=== PATIENT | male | born 1965 | race Caucasian/White ===

== ENCOUNTER 2017-08-30 21:50 | Emergency (ER) | payer MEDICAID ==
[2017-08-30 22:47] VITALS: BP 126/80
[2017-08-30] MEDS ORDERED: Acetaminophen/oxyCODONE 325-5 MG Tab PO ONE (23:34)
--- NOTE | 2017-08-30 23:35 | EDM.PDOC ---
ED HPI GENERAL MEDICAL PROBLEM - General Chief Complaint: Lower Extremity Injury/Pain Stated Complaint: right knee was HURT Time Seen by Provider: 08/30/17 23:35 Source of Information: Reports: Patient, Family History Limitations: Reports: No Limitations - History of Present Illness INITIAL COMMENTS - FREE TEXT/NARRATIVE: pt was putting docks into today. He slipped and hit his rt knee on a rock, He is having alot of pain on the medial aspect of the knee. Onset: Today Duration: Hour(s): Location: Reports: Lower Extremity, Right Associated Symptoms: Reports: No Other Symptoms Right Knee Pain Score (Numeric/FACES): 9 - Related Data Allergies Allergy/AdvReac Type Severity Reaction Status Date / Time amitriptyline Allergy Hives Verified 08/30/17 22:27 Penicillins Allergy Hives Verified 05/05/14 11:16 procaine HCl [From Novocain] Allergy Hives Verified 05/05/14 11:16 Home Meds: Home Meds atorvaSTATin [Lipitor] 80 mg PO DAILY 05/05/14 [History] Aspirin 81 mg PO DAILY 08/30/17 [History] Past Medical History Cardiovascular History: Reports: Heart Murmur Musculoskeletal History: Reports: Fracture Neurological History: Reports: CVA Other Neuro History: CVAX2 [id number] Psychiatric History: Reports: Anxiety - Past Surgical History GI Surgical History: Reports: Hernia, Abdominal Social & Family History - Tobacco Use Smoking Status *Q: Current Every Day Smoker Years of Tobacco use: 45 Packs/Tins Daily: 1.5 - Caffeine Use Caffeine Use: Reports: Coffee, Soda - Recreational Drug Use Recreational Drug Use: No Review of Systems - Review of Systems Review Of Systems: See Below Constitutional: Reports: No Symptoms Eyes: Reports: No Symptoms Ears: Reports: No Symptoms Nose: Reports: No Symptoms Mouth/Throat: Reports: No Symptoms Respiratory: Reports: No Symptoms Cardiovascular: Reports: No Symptoms GI/Abdominal: Reports: No Symptoms Musculoskeletal: Reports: Other (pain on the rt knee inner aspect. He is uncomfortable when the knee is straightened out. ) Skin: Reports: No Symptoms ED EXAM, GENERAL - Physical Exam Exam: See Below Free Text/Narrative:: Pt arrived with pain on the inner aspect of the rt knee. He slipped and hit his knee with a rock. Exam Limited By: No Limitations General Appearance: Alert, Anxious, Moderate Distress Ears: Normal TMs Nose: Normal Inspection Throat/Mouth: Normal Inspection Head: Atraumatic Neck: Normal Inspection Respiratory/Chest: No Respiratory Distress Cardiovascular: Regular Rate, Rhythm GI/Abdominal: Soft, Non-Tender Extremities: Other (rt knee is very tender on the medial aspect. ) Neurological: Alert, Oriented, Normal Cognition Course - Vital Signs Last Recorded V/S: Last Vital Signs Temp 37.0 C 08/30/17 22:45 Pulse 73 08/30/17 22:45 Resp 18 08/30/17 22:45 BP 126/80 08/30/17 22:45 Pulse Ox 97 08/30/17 22:45 - Orders/Labs/Meds Orders: Active Orders 24 hr Category Date Time Status Knee 3V Rt [CR] Stat Exams 08/30/17 23:35 Taken Meds: Medications Discontinued Medications Generic Name Dose Route Start Last Admin Trade Name Freq PRN Reason Stop Dose Admin Oxycodone/Acetaminophen 1 tab 08/30/17 23:34 08/30/17 23:38 Percocet 325-5 Mg PO 08/30/17 23:35 1 tab ONETIME ONE Administration - Re-Assessments/Exams Free Text/Narrative Re-Assessment/Exam: 08/31/17 00:08 xray did not reveal any fractures, The knee did not seem real unstable. Departure - Departure Time of Disposition: 00:05 Disposition: Home, Self-Care 01 Condition: Fair Clinical Impression: Contusion of right knee - Discharge Information Referrals: PCP,None [Primary Care Provider] - Forms: ED Department Discharge Care Plan Goals: knee imoblizer, cool pack to the knee, crutches, motrin 600mg tid, norco 5/325 q6h prn for pain #6 If not improving see regular in 4-5 days. - My Orders Last 24 Hours: My Active Orders 08/30/17 23:35 Knee 3V Rt [CR] Stat - Assessment/Plan Last 24 Hours: My Active Orders 08/30/17 23:35 Knee 3V Rt [CR] Stat
--- NOTE | 2017-08-31 09:01 | CR ---
Knee 3V Rt CLINICAL HISTORY: Pain, trauma FINDINGS: No acute fracture or dislocation is noted. There are no osseous lesions. There is mild soft tissue swelling over the patella and patellar tendon. There is some mild patellar spurring. Impression: Soft tissue swelling over the patella No fracture or subluxation Minimal osteoarthritic change
== END 2017-08-31 00:34 | disposition home or self-care (01) ==
LOC: JP.ED 21:50
DX: S80.01XA Contusion of right knee, initial encounter (principal); Z88.0 Allergy status to penicillin; Z88.8 Allergy status to other drugs, medicaments and biological substances; Z79.82 Long term (current) use of aspirin; F17.210 Nicotine dependence, cigarettes, uncomplicated; W01.0XXA Fall on same level from slipping, tripping and stumbling without subsequent striking against object, initial encounter
CPT/HCPCS: 73562; 99284; A9270

== ENCOUNTER 2018-05-21 18:03 | Emergency (ER) | payer MEDICAID ==
--- NOTE | 2018-05-21 19:26 | EDM.PDOCBH ---
ED HPI GENERAL MEDICAL PROBLEM - General Chief Complaint: Behavioral/Psych Stated Complaint: MENTAL EVAL Time Seen by Provider: 05/21/18 19:24 Source of Information: Reports: Patient, Family, Police, RN Notes Reviewed History Limitations: Reports: No Limitations - History of Present Illness INITIAL COMMENTS - FREE TEXT/NARRATIVE: 52-year-old gentleman brought in by law enforcement for mental health evaluation , his significant other is present she believes he is suicidal however he adamantly denies this denies suicidal ideation denies a plan denies homicidal ideation does not want to hurt anybody else and has been very cooperative - Related Data Allergies Allergy/AdvReac Type Severity Reaction Status Date / Time amitriptyline Allergy Hives Verified 08/30/17 22:27 Penicillins Allergy Hives Verified 05/05/14 11:16 procaine HCl [From Novocain] Allergy Hives Verified 05/05/14 11:16 Home Meds: Home Meds atorvaSTATin [Lipitor] 80 mg PO DAILY 05/05/14 [History] Aspirin 81 mg PO DAILY 08/30/17 [History] Citalopram Hydrobromide [Celexa] 10 mg PO DAILY 05/21/18 [History] Propranolol [Inderal] 10 mg PO DAILY 05/21/18 [History] Past Medical History Cardiovascular History: Reports: Heart Murmur Musculoskeletal History: Reports: Fracture Neurological History: Reports: CVA Other Neuro History: CVAX2 2009 Psychiatric History: Reports: Anxiety, Suicidal Ideation - Past Surgical History GI Surgical History: Reports: Hernia, Abdominal Social & Family History - Tobacco Use Smoking Status *Q: Heavy Tobacco Smoker Years of Tobacco use: 45 Packs/Tins Daily: 1 - Caffeine Use Caffeine Use: Reports: Coffee, Energy Drinks, Soda - Recreational Drug Use Recreational Drug Use: No ED ROS GENERAL - Review of Systems Review Of Systems: See Below Constitutional: Reports: No Symptoms HEENT: Reports: No Symptoms Respiratory: Reports: No Symptoms Cardiovascular: Reports: No Symptoms Endocrine: Reports: No Symptoms GI/Abdominal: Reports: No Symptoms : Reports: No Symptoms Musculoskeletal: Reports: No Symptoms Skin: Reports: No Symptoms Neurological: Reports: No Symptoms Psychiatric: Denies: Anxiety, Confusion, Homicidal Ideation, Suicidal Ideation ED EXAM, BEHAVIORAL HEALTH - Physical Exam Exam: See Below Text/Narrative:: Orientated to person place and time, appropriately dressed, well groomed, memory to recent and remote events intact, good attention and concentration, speech is of adequate rate tone and volume, good fund of knowledge, language is appropriate, Mood and affect are euthymic, no pressured thoughts, denies suicidal ideation, denies homicidal ideation, no hallucinations visual or auditory, good judgment, good insight Exam Limited By: No Limitations General Appearance: Alert, WD/WN, No Apparent Distress Respiratory/Chest: No Respiratory Distress COURSE, BEHAVIORAL HEALTH COMP - Course Vital Signs: Last Vital Signs Temp 95.4 F 05/21/18 18:30 Pulse 85 05/21/18 18:30 Resp 16 05/21/18 18:30 BP Pulse Ox 92 L 05/21/18 18:30 Orders, Labs, Meds: Laboratory Tests 05/21/18 Range/Units 18:58 Urine Opiates Screen Negative (NEGATIVE) Ur Oxycodone Screen Negative (NEGATIVE) Urine Methadone Screen Negative (NEGATIVE) Ur Propoxyphene Screen Negative (NEGATIVE) Ur Barbiturates Screen Negative (NEGATIVE) Ur Tricyclics Screen Negative (NEGATIVE) Ur Phencyclidine Scrn Negative (NEGATIVE) Ur Amphetamine Screen Negative (NEGATIVE) U Methamphetamines Scrn Negative (NEGATIVE) Urine MDMA Screen Presumptive positive H (NEGATIVE) U Benzodiazepines Scrn Negative (NEGATIVE) U Cocaine Metab Screen Negative (NEGATIVE) U Marijuana (THC) Screen Negative (NEGATIVE) Departure - Departure Time of Disposition: 21:40 Disposition: Home, Self-Care 01 Condition: Fair Clinical Impression: Evaluation by psychiatric service required - Discharge Information Referrals: Flaquito Merino MD [Primary Care Provider] - Forms: ED Department Discharge Additional Instructions: please follow-up with your primary care provider next week, recommend reestablishing with your counseling services as well, call return to the emergency department worsening of symptoms - Assessment/Plan Plan: Assessment Acuity = acute Site and laterality = mental health evaluation Etiology = none Manifestations = none Location of injury = Home Lab values = urine drug 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
== END 2018-05-21 21:47 | disposition home or self-care (01) ==
LOC: JP.ED 18:03
DX: Z00.8 Encounter for other general examination (principal); F17.210 Nicotine dependence, cigarettes, uncomplicated; Z88.0 Allergy status to penicillin; Z79.82 Long term (current) use of aspirin; Z88.8 Allergy status to other drugs, medicaments and biological substances
CPT/HCPCS: 80305-QW; 99284

== ENCOUNTER 2021-12-31 15:00 | Emergency (ER) | payer MEDICAID ==
[2021-12-31] MEDS ORDERED: Proparacaine 0.5% Ophth Soln 15 ML Bottle ONE (16:30)
== END 2021-12-31 17:30 | disposition home or self-care (01) ==
LOC: MERGE 15:00 → JP.ED 15:00
DX: S05.01XA Injury of conjunctiva and corneal abrasion without foreign body, right eye, initial encounter (principal); W45.8XXA Other foreign body or object entering through skin, initial encounter
CPT/HCPCS: 99283; A9270

== ENCOUNTER 2024-06-25 12:36 | Emergency (ER) | payer MEDICAID ==
[2024-06-25 13:19] LABS: BASOPHILS ABSOLUTE AUTO 0.04 K/uL (0.00-0.10); BASOPHILS PERCENT AUTO 0.2 % (0.1-1.3); EOSINOPHILS ABSOLUTE AUTO 0.05 K/uL (0.00-0.40); EOSINOPHILS PERCENT AUTO 0.3 % (0.0-5.4); HEMATOCRIT 47.8 % (38.4-49.7); HEMOGLOBIN 16.4 g/dL (12.9-16.9); IMMATURE GRAN ABSOLUTE AUTO 0.05 K/uL (0.00-0.23); IMMATURE GRAN PERCENT AUTO 0.3 % (0.0-0.7); LYMPHOCYTES ABSOLUTE AUTO 2.31 K/uL (0.8-3.3); LYMPHOCYTES PERCENT AUTO 14.1 % (11.4-47.7); MEAN CORPUSCULAR HEMOGLOBIN 30.9 pg (31.6-35.5); MEAN CORPUSCULAR HGB CONC 34.3 g/dL (31.6-35.5); MEAN CORPUSCULAR VOLUME 90.2 fL (81.4-99.0); MONOCYTES ABSOLUTE AUTO 0.92 K/uL (0.20-0.90); MONOCYTES PERCENT AUTO 5.6 % (3.3-12.6); NEUTROPHILS ABSOLUTE AUTO 13.05 K/uL (1.0-7.6); NEUTROPHILS PERCENT AUTO 79.5 % (40.0-78.1); PLATELET COUNT,PLT 326 K/uL (130-375); WHITE BLOOD CELL COUNT,WBC 16.4 K/uL (3.2-11.0)
[2024-06-25 13:42] LABS: LACTIC ACID 0.7 mmol/L (0.4-2.0)
[2024-06-25] MEDS: Sodium Chloride 0.9% 1,000 ML IV ONE (13:44)
[2024-06-25 13:46] LABS: ALANINE AMINOTRANSFERASE,ALT 26 U/L (12-78); ALBUMIN 3.6 g/dL (3.4-5.0); ALKALINE PHOSPHATASE 107 U/L (46-116); ASPARTATE AMNIOTRANSFERASE,AST 21 U/L (15-37); BILIRUBIN TOTAL 0.4 mg/dL (0.2-1.0); BLOOD UREA NITROGEN,BUN 10 mg/dL (7-18); CALCIUM 9.1 mg/dL (8.5-10.1); CARBON DIOXIDE,CO2 26 mmol/L (21-32); CHLORIDE,CL 100 mmol/L (100-108); CREATININE 0.9 mg/dL (0.8-1.3); EST CRCL DRUG DOSING (CG) 85.69 mL/min; ESTIMATED GFR 100 mL/min (>60); GLUCOSE RANDOM 109 mg/dL (74-106); POTASSIUM,K 3.9 mmol/L (3.6-5.2); PROTEIN TOTAL,TP 7.1 g/dL (6.4-8.2); SODIUM,NA 137 mmol/L (140-148)
[2024-06-25] MEDS: Ondansetron 4 MG/2 ML SDV IVPUSH ONE (13:46)
[2024-06-25 13:47] LABS: ANION GAP 14.9 mmol/L (5.0-14.0)
[2024-06-25 14:13] LABS: APPEARANCE,URINE CLEAR (CLEAR); BILIRUBIN,URINE NEGATIVE (NEGATIVE); COLOR,URINE YELLOW (YELLOW); GLUCOSE,URINE NEGATIVE (NEGATIVE); KETONES,URINE TRACE mg/dL (NEGATIVE); LEUKOCYTE ESTERASE,URINE NEGATIVE (NEGATIVE); NITRITE,URINE NEGATIVE (NEGATIVE); OCCULT BLOOD,URINE TRACE-INTACT (NEGATIVE); PH,URINE 6.5 (5.0-8.0); PROTEIN,URINE NEGATIVE (NEGATIVE); UROBILINOGEN,URINE 0.2 EU/dL (0.2-1.0)
[2024-06-25] MEDS: Sodium Chloride 0.9% 80 ML IV SCH (14:21)
[2024-06-25] MEDS: Iopamidol 612 MG/ML 100 ML Bottle IV ONE (14:21)
[2024-06-25 14:22] LABS: AMORPHOUS SEDIMENT,URINE NOT SEEN; BACTERIA,URINE NOT SEEN; EPITHELIAL CELLS,URINE RARE; MUCUS,URINE NOT SEEN; RBC,URINE 0-5 (0-5); WBC,URINE 0-5 (0-5)
[2024-06-25 14:29] VITALS: BP 136/84; PULSE 69
== END 2024-06-25 16:11 | disposition home or self-care (01) ==
LOC: JP.ED 12:36
DX: N12 Tubulo-interstitial nephritis, not specified as acute or chronic (principal); Z88.0 Allergy status to penicillin; Z88.8 Allergy status to other drugs, medicaments and biological substances
CPT/HCPCS: 36415; 74178; 74178-26; 80053; 81001; 83605; 85025; 87428-QW; 96361; 96374; 99284; 99284-25; J2405; J7030; Q9967